=== PATIENT | male | born 1965 | race Caucasian/White ===

== ENCOUNTER 2017-02-14 09:24 | Emergency (ER) | payer BC ==
--- NOTE | 2017-02-14 10:28 | UC ---
Knee Pain HPI - HPI Summary HPI Summary: 1.5 WEEKS OF RIGHT KNEE PAIN AND SWELLING THAT COMES AND GOES. PT STATES HE STRUCK HIS KNEE ON HIS DESK AND STEPPED IN A FEW POTHOLES PRIOR TO ONSET OF PAIN. SLIGHT LIMP WHEN HE WALKS. NO POPPING OR CLICKING OR LOCKING UP. DOES NOT FEEL UNSTABLE. PAIN FEELS LIKE IT IS UNDER HIS KNEECAP. WORSE AFTER PROLONGED SITTING, SQUATTING OR STAIRS. - History of Current Complaint Chief Complaint: UCLowerExtremity Stated Complaint: KNEE PAIN Time Seen by Provider: 02/14/17 09:37 Hx Obtained From: Patient Onset/Duration: Gradual Onset, Lasting Days, Still Present Severity Initially: Moderate Severity Currently: Moderate Pain Intensity: 3 Pain Scale Used: 0-10 Numeric Character: Dull, Aching Aggravating Factor(s): Movement, Stairs, Other - PROLONGED SITTING Associated Signs And Symptoms: Positive: Swelling. Negative: Redness, Fever - Allergies/Home Medications Allergies/Adverse Reactions: Allergies Allergy/AdvReac Type Severity Reaction Status Date / Time No Known Allergies Allergy Verified 02/14/17 09:32 Home Medications: Home Medications Empagliflozin [Jardiance] 10 mg PO 02/14/17 [History Confirmed 02/14/17] PMH/Surg Hx/FS Hx/Imm Hx Endocrine History: Diabetes - Surgical History Surgical History: None - Family History Known Family History: Positive: Hypertension - Social History Alcohol Use: None Substance Use Type: None Smoking Status (MU): Never Smoked Tobacco Review of Systems Constitutional: Negative Skin: Negative Respiratory: Negative Cardiovascular: Negative Gastrointestinal: Negative Musculoskeletal: Arthralgia, Edema All Other Systems Reviewed And Are Negative: Yes Physical Exam Triage Information Reviewed: Yes Appearance: Well-Appearing, No Pain Distress, Well-Nourished Vital Signs: Initial Vital Signs Temp 98 F 02/14/17 09:34 Pulse 87 02/14/17 09:34 Resp 16 02/14/17 09:34 BP 121/78 02/14/17 09:34 Pulse Ox 97 02/14/17 09:34 Vital Signs Reviewed: Yes Eyes: Positive: Conjunctiva Clear ENT: Positive: Hearing grossly normal Neck: Positive: Supple Respiratory: Positive: No respiratory distress, No accessory muscle use Cardiovascular: Positive: Pulses Normal Abdomen Description: Positive: Soft Musculoskeletal: Positive: ROM Intact, Edema @ - SLIGHT SWELLING RIGHT KNEE MEDIAL ASPECT, Other: - RIGHT KNEE: NO JOINT LINE TENDERNESS OR TENDERNESS OVER ANY BONY PROMINENCES. MCL AND LCL INTACT TO STRESS TESTING. NEG LACHMANS. NEG DRAWERS SIGNS. NEG MCMURRAYS. POS PATELLAR APPREHENSION TEST. NO TENDERNESS OVER PATELLAR LIGAMENT OR QUADRICEPS TENDON. Neurological: Positive: Alert Psychological: Positive: Age Appropriate Behavior Skin: Negative: rashes Diagnostics - Radiology RIGHT KNEE XRAY Xray Interpretation: Positive (See Comments) - OSTEOARTHRITIS. JOINT EFFUSION. NO ACUTE OSSEOUS INJURY Radiology Interpretation Completed By: Radiologist Knee Pain Course/Dx - Differential Dx/Diagnosis Provider Diagnoses: RIGHT PATELLOFEMORAL SYNDROME Discharge - Discharge Plan Condition: Stable Disposition: HOME Patient Education Materials: Patellofemoral Pain Syndrome (ED) Referrals: Coy Ham MD [Primary Care Provider] - If Needed Juancho Downey MD [Medical Doctor] - 2 Weeks Additional Instructions: XRAY TODAY SHOWED A SMALL EFFUSION AND SOME OSTEOARTHRITIS. YOUR SYMPTOMS ARE CONSISTENT WITH PATELLOFEMORAL SYNDROME. REST, COMPRESS, ELEVATE. OTC MEDS NEEDED FOR DISCOMFORT. IF SYMPTOMS ARE NOT IMPROVING OVER THE NEXT COUPLE OF WEEKS FOLLOW-UP WITH ORTHO. YOU MAY BENEFIT FROM PHYSICAL THERAPY OR FURTHER IMAGING. PATELLOFEMORAL SYNDROME What is patellofemoral pain syndrome? Patellofemoral pain syndrome is a condition that causes pain in the front of the knee. It involves the knee cap, which doctors call the patella". Many times, patellofemoral pain syndrome happens in runners or other people who put a lot of pressure on their knees. But the condition can also happen when a persons knee cap gets out of line with the knee joint. What are the symptoms of patellofemoral pain syndrome? Patellofemoral pain syndrome causes pain in the front of the knee, or around or behind the knee cap. The pain can come on slowly or quickly. The pain is usually worse when people squat, run, or sit for a long time. Some people might also feel as if their knee is giving out. Is there a test for patellofemoral pain syndrome? No test can tell for sure if you have patellofemoral pain syndrome. But your doctor or nurse should be able to tell if you have the condition by learning about your symptoms and doing an exam. To make sure your symptoms arent caused by another condition, your doctor might order an X-ray or imaging test of your knee. Imaging tests create pictures of the inside of the body. How is patellofemoral pain syndrome treated? Treatment usually involves a few parts. The first part of treatment helps to reduce your pain. It can include: - Resting your knee and avoiding activities or movements that make the pain worse - Taking nonsteroidal anti-inflammatory drugs, also called NSAIDs NSAIDs are a large group of medicines that includes ibuprofen (sample brand names: Advil, Motrin) and naproxen (sample brand names: Aleve, Naprosyn). - Putting ice on your knee when it hurts or after activities that cause pain You can put a cold gel pack, bag of ice, or bag of frozen vegetables on the painful area every 1 to 2 hours, for 15 minutes each time. Put a thin towel between the ice (or other cold object) and your skin. Another part of treatment involves doing exercises to strengthen the muscles around your knee. Your doctor or nurse will show you which exercises to do, or he or she will have you work with a physical therapist (exercise expert). Your doctor might also recommend that you: - Wear a knee brace to support your knee. - Tape up your knee in a certain way to support your knee. - Wear special shoe inserts made to fit your foot (to keep your foot from turning in or out too much). Your symptoms will most likely improve with treatment. But if they dont, your doctor might have you see a knee specialist to discuss treating your condition with surgery.
--- NOTE | 2017-02-14 10:53 | RAD ---
HISTORY: Right knee pain and swelling COMPARISONS: None VIEWS: 4, Frontal, lateral, axial, and oblique views of the right knee FINDINGS: BONE DENSITY: Normal. BONES: There is no displaced fracture. JOINTS: There is mild to moderate tricompartmental osteoarthritis most pronounced within the patellofemoral compartment. There is a moderate suprapatellar joint effusion. ALIGNMENT: There is no dislocation. SOFT TISSUES: Unremarkable. OTHER FINDINGS: None. IMPRESSION: OSTEOARTHRITIS. JOINT EFFUSION. NO ACUTE OSSEOUS INJURY. IF SYMPTOMS PERSIST, RECOMMEND REPEAT IMAGING.
[2017-02-14 11:35] VITALS: BP 107/68
== END 2017-02-14 11:33 | disposition home or self-care (01) ==
LOC: UCEAST 09:24
DX: M22.2X1 Patellofemoral disorders, right knee (principal); E11.9 Type 2 diabetes mellitus without complications
CPT/HCPCS: 99212; G0463

== ENCOUNTER 2022-03-25 08:42 | Inpatient (IN) ==
[~2022-03-25 08:42] MED LIST: Buffered Lidocaine 1% SYRIN 1 ml INTRADERM ONE; Dexamethasone IV 4 MG/ML VIAL 1 ml VIAL ONE; Lactated Ringers 1000 ml BAG 1,000 ML IV SCH; Lidocaine 2% PF 5 ML VIAL ONE; Midazolam 2 mg/2 ml VIAL 1 mg/ml 2 ml VIAL (2 mg) ONE; Naloxone 0.4 mg VIAL 0.4 mg/ml 1 ml VIAL IV PRN; Ondansetron 4 mg VIAL 2 MG/ML 2 ml VIAL IV PRN; Ondansetron 4 mg VIAL 2 MG/ML 2 ml VIAL ONE; Propofol 10 MG/ML 20 ML BTL ONE; Rocuronium 50 mg VIAL 10 mg/ml 5 ml VIAL (50 mg) ONE; fentaNYL 100 mcg/2 ml 50 MCG/ML VIAL IV PRN; fentaNYL 250 mcg/5 ml 50 MCG/ML 5 ml VIAL (250 MCG) ONE; oxyCODONE/Acetamin 5/325 mg TAB PO PRN
[2022-03-25] MEDS ORDERED: Ertapenem 1 GM in NS 0.9% 50 ML IVPB ONE (09:00)
[2022-03-25] MEDS ORDERED: Heparin 5000 UNITS/ML 1 mL VIAL ONE (09:06)
[2022-03-25] MEDS ORDERED: Bupivacaine 0.25% w/EPI 10 ML SDV ONE (11:13)
[2022-03-25] MEDS ORDERED: Rocuronium 50 mg VIAL 10 mg/ml 5 ml VIAL (50 mg) ONE (11:54)
[2022-03-25] MEDS ORDERED: Ondansetron 4 mg VIAL 2 MG/ML 2 ml VIAL ONE (12:41)
[2022-03-25] MEDS ORDERED: Ondansetron 4 mg VIAL 2 MG/ML 2 ml VIAL IV PRN (14:18)
[2022-03-25] MEDS ORDERED: HYDROmorphone 1 MG/1 ML SYRINGE IV SLOW PU PRN (14:18)
[2022-03-25] MEDS ORDERED: HYDROmorphone 0.5 MG/0.5 ML SYRINGE IV SLOW PU PRN (14:22)
[2022-03-25] MEDS ORDERED: Dextrose 50% Syringe 50 ml 25 GM/50 ML SYRINGE IV PUSH PRN (14:24)
[2022-03-25] MEDS ORDERED: Scopolamine 1 mg/72hr PATCH ONE (14:51)
[2022-03-25] MEDS ORDERED: Scopolamine 1 mg/72hr PATCH TRANSDERM SCH (15:00)
[2022-03-25] MEDS ORDERED: Lactated Ringers 1000 ml BAG 1,000 ML IVPB SCH (15:00)
[2022-03-25] MEDS ORDERED: fentaNYL 100 mcg/2 ml 50 MCG/ML VIAL ONE (15:47)
[2022-03-25] MEDS: Acetaminophen IV 1 GM/100ML 1,000 MG/100 ML BAG IV SCH ×2 (16:29→22:31)
[2022-03-25] MEDS ORDERED: HYDROmorphone 0.5 MG/0.5 ML SYRINGE ONE (17:09)
[2022-03-26] MEDS: Acetaminophen IV 1 GM/100ML 1,000 MG/100 ML BAG IV SCH ×3 (05:56→21:28)
[2022-03-26 06:17] LABS: ABS Monocytes 1.1 10^3/ul (0-0.8); ABS Neutrophils 9.1 10^3/ul (1.5-7.7); Hematocrit 40 % (42-52); Hemoglobin 13.4 g/dL (14.0-18.0); Mean Corpuscular HGB Conc 33 g/dL (31-36); Mean Corpuscular Hemoglobin 30 pg (27-31); Mean Corpuscular Volume 89 fL (80-94); Platelet Count 176 10^3/uL (150-450); Red Blood Count 4.51 10^6 /uL (4.18-5.48); Red Cell Distribution Width 14 % (10-15); White Blood Count 11.3 10^3/uL (3.5-10.8)
[2022-03-26 06:29] LABS: Calcium 8.4 mg/dL (8.6-10.3); Potassium 3.9 mmol/L (3.5-5.0); eGFR CKD-EPI 88.3 (>60)
[2022-03-26] MEDS ORDERED: Lactated Ringers 1000 ml BAG 1,000 ML IV ONE (08:15)
[2022-03-26] MEDS: Enoxaparin 40 MG/0.4 ML SYR SUBCUT SCH (09:12)
[2022-03-27 05:49] LABS: ABS Eosinophils 0.1 10^3/ul (0-0.6); ABS Lymphocytes 1.5 10^3/ul (1.0-4.8); ABS Monocytes 0.8 10^3/ul (0-0.8); ABS Neutrophils 7.5 10^3/ul (1.5-7.7); Eosinophil % 0.6 %; Hematocrit 39 % (42-52); Hemoglobin 13.1 g/dL (14.0-18.0); Lymphocyte % 15.1 %; Mean Corpuscular HGB Conc 33 g/dL (31-36); Mean Corpuscular Hemoglobin 30 pg (27-31); Mean Corpuscular Volume 90 fL (80-94); Mean Platelet Volume 8.8 fL (7.4-10.4); Platelet Count 151 10^3/uL (150-450); Red Blood Count 4.39 10^6 /uL (4.18-5.48); Red Cell Distribution Width 14 % (10-15); White Blood Count 9.9 10^3/uL (3.5-10.8)
[2022-03-27 06:06] LABS: Calcium 8.5 mg/dL (8.6-10.3); Potassium 3.8 mmol/L (3.5-5.0); eGFR CKD-EPI 85.3 (>60)
[2022-03-27] MEDS: Enoxaparin 40 MG/0.4 ML SYR SUBCUT SCH (07:49)
[2022-03-27] MEDS ORDERED: Dorzolamide 2% OPTH (NF) 10 ML BTL LEFT EYE SCH (09:00)
[2022-03-27] MEDS: Insulin GLARGINE 100 un/ml 10 ml VIAL SUBCUT SCH ×2 (09:31→20:15)
[2022-03-27] MEDS: PTO:Dorzolamide 2% OPTH (NF) 10 ML BTL LEFT EYE SCH ×2 (11:53→20:02)
[2022-03-27] MEDS: PTO:Latanoprost 0.005% 2.5 ml BTL LEFT EYE SCH ×2 (20:02→20:03)
[2022-03-27] MEDS: ZAFIRLUKAST 20 MG PO SCH (20:16)
[2022-03-28 06:56] LABS: ABS Eosinophils 0.3 10^3/ul (0-0.6); ABS Lymphocytes 1.1 10^3/ul (1.0-4.8); ABS Monocytes 0.6 10^3/ul (0-0.8); ABS Neutrophils 5.1 10^3/ul (1.5-7.7); Eosinophil % 4.3 %; Hematocrit 37 % (42-52); Hemoglobin 12.3 g/dL (14.0-18.0); Lymphocyte % 15.4 %; Mean Corpuscular HGB Conc 34 g/dL (31-36); Mean Corpuscular Hemoglobin 30 pg (27-31); Mean Corpuscular Volume 90 fL (80-94); Mean Platelet Volume 8.5 fL (7.4-10.4); Platelet Count 136 10^3/uL (150-450); Red Blood Count 4.09 10^6 /uL (4.18-5.48); Red Cell Distribution Width 14 % (10-15); White Blood Count 7.2 10^3/uL (3.5-10.8)
[2022-03-28 06:58] LABS: Potassium 3.8 mmol/L (3.5-5.0)
[2022-03-28] MEDS: Enoxaparin 40 MG/0.4 ML SYR SUBCUT SCH (07:32)
[2022-03-28] MEDS: PTO:Dorzolamide 2% OPTH (NF) 10 ML BTL LEFT EYE SCH ×2 (07:34→20:40)
[2022-03-28] MEDS: ZAFIRLUKAST 20 MG PO SCH ×3 (08:35→20:40)
[2022-03-28] MEDS ORDERED: Albuterol HFA INHALER 8 gm MDI INH PRN (11:01)
[2022-03-28] MEDS ORDERED: Scopolamine 1 mg/72hr PATCH TRANSDERM PRN (11:01)
[2022-03-28] MEDS ORDERED: Omeprazole 20 mg CAP (NF) PO SCH (12:00)
[2022-03-28] MEDS ORDERED: Dulaglutide (NF) 0.75 MG/0.5 ML SYRINGE SUBCUT SCH (12:00)
[2022-03-28] MEDS: PTO:Latanoprost 0.005% 2.5 ml BTL LEFT EYE SCH (20:40)
[2022-03-28] MEDS: Insulin GLARGINE 100 un/ml 10 ml VIAL SUBCUT SCH (20:41)
[2022-03-28] MEDS ORDERED: Aspirin EC 81 mg TAB.EC (enteric coated) PO SCH (21:00)
[2022-03-29] MEDS: Enoxaparin 40 MG/0.4 ML SYR SUBCUT SCH (08:50)
[2022-03-29] MEDS: ZAFIRLUKAST 20 MG PO SCH (08:54)
[2022-03-29] MEDS: PTO:Dorzolamide 2% OPTH (NF) 10 ML BTL LEFT EYE SCH (08:59)
[2022-03-29] MEDS ORDERED: Empagliflozin 25 MG TAB PO SCH (09:00)
[2022-03-29 14:18] VITALS: BP 105/58
== END 2022-03-29 16:50 | disposition home or self-care (01) | DRG 221 ==
LOC: AA 08:42 → SSU 14:19
PROVIDERS: ADMIT Surgery; ATTEND Surgery